=== PATIENT | male | born 1960 ===

== ENCOUNTER 2023-09-25 00:59 | Observation (INO) | payer OTHER ==
[2023-09-25 01:17] LABS: BASOPHILS ABSOLUTE AUTO 0.07 K/uL (0.00-0.20); BASOPHILS PERCENT AUTO 0.5 % (0.0-1.0); EOSINOPHILS ABSOLUTE AUTO 0.38 K/uL (0.00-0.45); EOSINOPHILS PERCENT AUTO 2.9 % (0.0-6.0); HEMATOCRIT 42.2 % (42.0-52.0); HEMOGLOBIN 13.8 g/dL (14.0-18.0); IMMATURE GRAN ABSOLUTE AUTO 0.06 K/uL (0.00-0.05); IMMATURE GRAN PERCENT AUTO 0.5 % (0.0-0.4); LYMPHOCYTES ABSOLUTE AUTO 2.24 K/uL (1.00-4.80); LYMPHOCYTES PERCENT AUTO 16.9 % (24.0-44.0); MEAN CORPUSCULAR HEMOGLOBIN 30.9 pg (28.0-32.0); MEAN CORPUSCULAR HGB CONC 32.7 g/dL (32.0-36.0); MEAN CORPUSCULAR VOLUME 94.6 fL (83.0-99.0); MEAN PLATELET VOLUME 11.5 fL (9.4-12.4); MONOCYTES ABSOLUTE AUTO 1.19 K/uL (0.00-0.80); NEUTROPHILS ABSOLUTE AUTO 9.32 K/uL (1.80-7.70); NEUTROPHILS PERCENT AUTO 70.2 % (41.0-71.0); PLATELET COUNT,PLT 216 K/uL (150-400); RED BLOOD CELL COUNT 4.46 M/uL (4.52-5.90); WHITE BLOOD CELL COUNT,WBC 13.26 K/uL (3.9-11.3)
[2023-09-25 01:41] LABS: A/G RATIO 1.1 (0.9-1.6); ALBUMIN 4.1 g/dL (3.4-5.0); BILIRUBIN TOTAL 1.4 mg/dL (0.2-1.0); CALCIUM 9.6 mg/dL (8.5-10.1); CARBON DIOXIDE,CO2 32.9 mmol/L (21.0-32.0); CREATININE 1.7 mg/dL (0.8-1.3); EST CRCL DRUG DOSING (CG) 48.6 mL/min; POTASSIUM,K 3.5 mmol/L (3.5-5.1); PROTEIN TOTAL,TP 7.9 g/dL (6.4-8.2)
[2023-09-25] MEDS: LORazepam 2 MG/ML SDV IVPUSH ONE (01:54)
[2023-09-25] MEDS: Sodium Chloride 0.9% 2.5 ML Syringe FLUSH PRN (01:54)
[2023-09-25] MEDS: Sodium Chloride 0.9% 10 ML Syringe FLUSH PRN (01:54)
[2023-09-25] MEDS: cloNIDine 0.1 MG Tab PO ONE (02:36)
[2023-09-25] MEDS: Furosemide 40 MG/4 ML VIAL IVPUSH ONE (02:38)
[2023-09-25] MEDS ORDERED: Ondansetron 4 MG/2 ML SDV IVPUSH PRN (05:03)
[2023-09-25] MEDS ORDERED: Acetaminophen 325 MG Tab PO PRN (05:03)
[2023-09-25] MEDS ORDERED: Melatonin 3 MG Tab PO PRN (05:03)
[2023-09-25] MEDS ORDERED: Polyethylene Glycol 3350 Powder 17 GM Packet PO PRN (05:03)
[2023-09-25 05:15] LABS: CALCIUM 9.6 mg/dL (8.5-10.1); CREATININE 1.7 mg/dL (0.8-1.3); EST CRCL DRUG DOSING (CG) 48.6 mL/min; POTASSIUM,K 3.3 mmol/L (3.5-5.1)
[2023-09-25] MEDS ORDERED: Sodium Chloride 0.9% 2.5 ML Syringe FLUSH PRN (08:31)
[2023-09-25] MEDS ORDERED: Sodium Chloride 0.9% 10 ML Syringe FLUSH PRN (08:31)
[2023-09-25] MEDS: Furosemide 40 MG/4 ML VIAL IVPUSH SCH (08:33)
[2023-09-25] MEDS: Apixaban 5 MG Tab PO SCH (08:45)
[2023-09-25] MEDS: Amiodarone 200 MG Tab PO SCH (08:45)
[2023-09-25] MEDS ORDERED: Furosemide 40 MG/4 ML VIAL IVPUSH SCH (09:00)
[2023-09-25] MEDS: Doxazosin 4 MG Tab PO SCH (09:02)
[2023-09-25] MEDS: Cholecalciferol (Vitamin D3) 25 MCG Tab PO SCH (09:03)
[2023-09-25] MEDS: Metoprolol Succinate 100 MG Tab.ER PO SCH (09:04)
[2023-09-25] MEDS: Fish Oil/Omega-3 Fatty Acids 1 Gm Cap PO SCH (09:04)
[2023-09-25] MEDS: Potassium Chloride 20 MEQ Tab.ER PO SCH (09:05)
[2023-09-25] MEDS: Multivitamin Tab PO SCH (09:05)
[2023-09-25 10:23] LABS: HEMOGLOBIN A1C 5.5 %
[2023-09-26] MEDS ORDERED: Magnesium Sulfate/Water 50 ML ONE (10:05)
[2023-09-26] MEDS ORDERED: Potassium Chloride 20 MEQ Tab.ER ONE ×2 (10:06→13:02)
[2023-09-26 16:14] LABS: CALCIUM 8.9 mg/dL (8.5-10.1); CARBON DIOXIDE,CO2 32.3 mmol/L (21.0-32.0); CREATININE 1.7 mg/dL (0.8-1.3); EST CRCL DRUG DOSING (CG) 48.6 mL/min; MAGNESIUM 1.6 mg/dL (1.8-2.4); POTASSIUM,K 3.2 mmol/L (3.5-5.1)
[2023-09-26 18:01] LABS: BASOPHILS ABSOLUTE AUTO 0.05 K/uL (0.00-0.20); BASOPHILS PERCENT AUTO 0.5 % (0.0-1.0); EOSINOPHILS ABSOLUTE AUTO 0.36 K/uL (0.00-0.45); EOSINOPHILS PERCENT AUTO 3.7 % (0.0-6.0); HEMATOCRIT 39.2 % (42.0-52.0); HEMOGLOBIN 12.9 g/dL (14.0-18.0); IMMATURE GRAN ABSOLUTE AUTO 0.03 K/uL (0.00-0.05); IMMATURE GRAN PERCENT AUTO 0.3 % (0.0-0.4); LYMPHOCYTES PERCENT AUTO 17.4 % (24.0-44.0); MEAN CORPUSCULAR HEMOGLOBIN 30.9 pg (28.0-32.0); MEAN CORPUSCULAR HGB CONC 32.9 g/dL (32.0-36.0); MEAN PLATELET VOLUME 11.4 fL (9.4-12.4); MONOCYTES ABSOLUTE AUTO 1.04 K/uL (0.00-0.80); MONOCYTES PERCENT AUTO 10.6 % (0.0-8.0); NEUTROPHILS PERCENT AUTO 67.5 % (41.0-71.0); PLATELET COUNT,PLT 193 K/uL (150-400); RED BLOOD CELL COUNT 4.17 M/uL (4.52-5.90); WHITE BLOOD CELL COUNT,WBC 9.78 K/uL (3.9-11.3)
== END 2023-09-26 13:30 | disposition home or self-care (01) ==
LOC: MW.ED 00:59 → MW.MS 05:08
PROVIDERS: ADMIT Family Medicine; ATTEND Family Medicine
DX: I11.0 Hypertensive heart disease with heart failure (principal); I50.9 Heart failure, unspecified; I48.19 Other persistent atrial fibrillation; E66.01 Morbid (severe) obesity due to excess calories; Z68.41 Body mass index [BMI] 40.0-44.9, adult; Z79.01 Long term (current) use of anticoagulants; Z79.899 Other long term (current) drug therapy
CPT/HCPCS: 36415; 71045; 80048; 80053; 80061; 83036; 83735; 83880; 84443; 84484; 85025; 93005; 93306; 96374; 96375; 99285; A9270; J1940; J2060; J3475; J3490; 96365; 96376; G0378